=== PATIENT | male | born 1945 | race Caucasian/White ===

== ENCOUNTER → 2023-08-01 15:05 | Outpatient (CLI) | payer MEDICARE, SELFPAY | PROVIDERS: PCP Family Medicine; Visit Provider Internal Medicine Pulmonary Disease | DX: R06.02 Shortness of breath (principal) | CPT/HCPCS: 94762 ==

== ENCOUNTER → 2023-08-03 11:59 | Outpatient (CLI) | payer MEDICARE, SELFPAY | PROVIDERS: PCP Family Medicine; Visit Provider Physician Assistant | DX: R06.09 Other forms of dyspnea (principal); R00.2 Palpitations; J44.9 Chronic obstructive pulmonary disease, unspecified; Z87.891 Personal history of nicotine dependence | CPT/HCPCS: 93225 ==

== ENCOUNTER → 2023-08-08 10:53 | Outpatient (CLI) | payer MEDICARE, SELFPAY ==
--- NOTE | 2023-08-08 10:54 | CA_ITS ---
APPROVED REPORT EXAM: Comprehensive 2D, Doppler, and color-flow Echocardiogram Lodge Attendant: CATRACHO Gordon, RVS Ht: 5 ft 0 in Wt: 151lbs BSA: 1.66 BP: 121/67 mmHg Indications: HARRIS, COPD, Diastolic dysfunction, Palpitations, Smoker Echo Enhancing Agent Comments: Limited windows due to lung impedence 2D Dimensions LVDd 3.29 cm M: 4.2 - 5.9 LVEF (Visual) 36.10 % LVDs 2.74 cm M: 2.5 - 4.0 LA Volume 42.70 mL Aortic Root 2.98 cm M: 3.1 - 3.7 LA Volume Index [id number] mL/m2 (M/F) 16-34 Left Atrium 3.12 cm M: 3.0 - 4.0 LVOT 2.11 cm (M/F) 1.5-2.5 M-Mode Dimensions RVDd 3.35 cm (0.9-2.6) LA Diam 3.47 cm (1.9-4.0) LVDd 4.45 cm (3.5-5.7) Ao Diam 3.24 cm (2.0-3.7) LVDs 3.48 cm (3.5-5.7) IVSd 0.99 cm (0.6-1.1) PWd 0.95 cm (0.6-1.1) EF (Teich) 50.70% EPSs 0.34 cm FS 25.80% EDV (Teich) 101.90 mL TAPSE 2.91 (<1.7) ESV (Teich) 50.20 mL LV Diastology E Decel Time 263.00 (160-240 msec) E/A Ratio 0.86 MED E' 6.70 (< 7 cm/sec) MED A' 9.20 cm/s E'/MED E' Ratio 9.06 (>14) LAT E' 8.40 (<10 cm/sec) LAT A' 11.90 cm/s E/LAT E' Ratio 7.23 (>14) Aortic Valve LVOT Max 86.00 (70-110 cm/s) LVOT VTI 20.22 cm AoV Peak Osman. 159.00 (50-130 cm/s) AO Peak GR. 10.10 mmHg AO Mean GR. 5.00 (<5 mmHg) AO VTI 34.55 (18-25 cm) ISAIAH (VTI) 2.05 (2.5-4.5 cm2) Mitral Valve MV A Velocity 71.00 (40-130 cm/s) E/A Ratio 0.86 MV Decel. Time 263.00 (160-240 ms) Pulmonary Valve PV Peak Velocity 83.00 (50-150 cm/s) Tricuspid Valve TR P. Velocity 321.00 cm/s RAP Estimate 10.00 mmHg RVSP 51.20 mmHg Left Ventricle The left ventricle is normal size. The left ventricular systolic function is normal. The left ventricular ejection fraction is within the normal range. There is increased LV wall thickness. There is normal LV segmental wall motion. Diastolic function is indeterminate. LVEF is 60%. Right Ventricle Right ventricle is moderately to severely dilated. The right ventricular systolic function is normal. Atria The left atrium size is normal. The right atrium size is normal. There is no Doppler evidence of interatrial shunt. Aortic Valve The aortic valve is mildly thickened. There is no aortic valvular stenosis. No aortic regurgitation is present. Mitral Valve The mitral valve is normal in structure. No evidence of mitral valve stenosis. Trace mitral regurgitation. Tricuspid Valve The tricuspid valve leaflets are thin and pliable. Mild tricuspid regurgitation. RVSP is 40 mmHg + RA pressure. Pulmonic Valve The pulmonary valve is normal in structure. Trace pulmonic regurgitation. Great Vessels The aortic root is normal in size. The ascending aorta is not well visualized. The IVC is not well visualized. Pericardium There is no pericardial effusion. Other Information Study Quality: Technically Difficult Conclusion This was a technically difficult study due to poor accoustic windows. Normal biventricular systolic function. Moderate to severe RV dilation. Mild TR. Elevated RVSP 40 mmHg + RA pressure. Electronically signed by : Za Hook, 08/10/2023 22:41:13
--- NOTE | 2023-08-08 10:54 | NM_ITS ---
APPROVED REPORT Exam: Nuclear Stress Test Indication: hyperlipidemia, fm hx., copd, sob, palpitations, fatigue Patient Location: Outpatient Stress Tech: Leticia Hammonds [place] Tech:Gita Treadwell TIN RT (R)(N)(M) Ht: 5 ft 6 in Wt: 152 lbs HR: 77 bpm BP: 144/77 mmHg BSA: 1.78 m2 Rhythm: NSR TID: 0.93 BMI: 24.5 History: hyperlipidemia, fm hx., copd, sob, palpitations, fatigue Procedure: Patient received 0.4 mg of intravenous Lexiscan, resting heart rate 77 bpm, resting blood pressure 144/77 mmHg, with Lexiscan maximum heart rate achieved was 93 bpm which is % of the maximum predicted heart rate and blood pressure was 124/469 mmHg. With Lexiscan, patient denied any complaint of chest pain. Cardiac Stress and Resting SPECT Images: Cardiac Stress and Resting SPECT images were obtained using technetium 99m Myoview 31.8 mCi stress and 10.55 mCi at rest. Resting and stress imaging in both supine and prone positions demonstrate large sized, moderate, partially reversible perfusion defect in the inferior, septal, and inferoseptal LV schultz, from the base and extending distally towards the inferoapical region. Gated imaging demonstrates normal global LV systolic function. There is mild hypokinesis of the septal and inferoseptal LV schultz. LVEF is calculated at 69%. Conclusion: Large sized, moderate, partially reversible perfusion defect in the inferior, septal, and inferoseptal LV schultz, from the base and extending distally towards the inferoapical region. Findings are suggestive of partial reversible ischemia. Gated imaging demonstrates normal global LV systolic function. There is mild hypokinesis of the septal and inferoseptal LV schultz. LVEF is calculated at 69%. Electronically signed by : Za Hook MD 08/19/2023 17:29:21
--- NOTE | 2023-08-08 12:48 | CA_ITS ---
APPROVED REPORT Exam: Pharmacologic Technologist: Leticia Hammonds Ht: 5 ft 6 in Wt: 151 lbs BSA: 1.77 m2 HR: 77 bpm BP: 146/77 mmHg Rhythm: NSR Indications: Dyspnea,Palpitations Medical History Medications: Simvastatin,,,,, TAMSULOSIN,,,,, Albuterol,,,,, Acetaminophen,,,,, AZelastine,,,,, Ipratropium [place],,,,, Multivitamin,,,,, Tylenol PM,,,,, BREztri aerosphere,,,,, Stress Test Details Test: LEXISCAN HR Resting HR: 75 bpm Max Heart Rate (APMHR): 140 bpm Max HR Achieved: 93 bpm Target HR (85% APMHR): 119 bpm % of APMHR: 66 Recovery HR: 82 bpm BP Resting BP: 146.0/77.0 mmHg Max BP: 146.0/77.0 mmHg Recovery BP: 140.0/72.0 mmHg ECG Resting ECG: Normal sinus rhythm, non-specific T-wave changes Stress ECG: No ST changes Arrhythmia: PVCs Clinical Exercise duration: 04:42 min Highest Stage Achieved: Exercise capacity: 1.0 METs Stress ECG Conclusion Symptoms: Dyspnea Arrhythmias/Ectopy: PVCs ST-T Changes: No significant ST changes Conclusion: Unremarkable Lexiscan stress test. Myoview images are reported separately. Test Summary REST . . . . . . . Resting REST 04:01 . . 75 . 146/ 77 . . Stage 1 . . . . . . . Myoview Injected Stage 1 01:00 . . 87 . . . . Stage 2 01:00 . . 90 . 124/ 69 . . Stage 3 01:00 . . 86 . 132/ 69 . . Stage 4 01:00 . . 86 . 140/ 69 . . Stage 4 01:42 . . 83 . 140/ 69 . Stop exercise at 04:42 RECOVERY 01:00 . . 82 . 137/ 68 . . RECOVERY 02:00 . . 84 . 137/ 68 . . RECOVERY 03:00 . . 82 . 140/ 72 . . RECOVERY 03:07 . . 83 . 140/ 72 . . Electronically signed by : Za Hook MD 08/19/2023 17:25:27
== END ==
PROVIDERS: PCP Family Medicine; Visit Provider Physician Assistant
DX: J44.9 Chronic obstructive pulmonary disease, unspecified (principal); R00.2 Palpitations; R06.09 Other forms of dyspnea; Z87.891 Personal history of nicotine dependence
CPT/HCPCS: 78452; 93017; 93306; A9502; J2785

== ENCOUNTER → 2023-10-27 09:45 | Outpatient (CLI) | payer MEDICARE, SELFPAY ==
--- NOTE | 2023-10-27 09:51 | XR_ITS ---
FINAL REPORT TECHNIQUE: Chest PA & Lateral CLINICAL HISTORY: SOB/Insurance need CXR before CT chest COMPARISON: None FINDINGS: 2 views of the chest were performed. The heart size is normal. The mediastinum is within normal limits. The lungs are hyperinflated. There is mild scarring at the bases. There are no pleural effusions. There is no pneumothorax. The bony thorax appears intact. IMPRESSION: Hyperinflated lungs with mild scarring at the bases. Reviewed, Interpreted and Dictated by Frank Heard MD Transcribed by Desirae Palmer Authenticated and [facility]
== END ==
PROVIDERS: PCP Family Medicine; Visit Provider Internal Medicine Pulmonary Disease
DX: R06.02 Shortness of breath (principal)
CPT/HCPCS: 71046

== ENCOUNTER 2024-01-26 10:17 | Outpatient (CLI) | payer MEDICARE, SELFPAY ==
--- NOTE | 2024-01-26 10:18 | CT_ITS ---
FINAL REPORT TECHNIQUE: Thin section axial images were obtained from the lung apices through the upper abdomen without contrast. This study was performed with techniques to keep radiation doses as low as reasonably achievable (ALARA). Individualized dose reduction techniques using automated exposure control or adjustment of mA and/or kV according to the patient's size were employed. CLINICAL HISTORY: SOB COMPARISON: None FINDINGS: There is no mediastinal, hilar, or axillary lymphadenopathy. No pleural or pericardial effusion. Changes of emphysema are present. There is right middle lobe and lingular atelectasis. There is a 5 mm left upper lobe nodule seen best on image #142. No other focal masses or nodules are identified. Limited, unenhanced evaluation of the upper abdomen is without acute abnormality. There is no acute osseous abnormality. IMPRESSION: 5 mm left upper lobe nodule. Without prior examinations, would recommend a 6-month follow-up chest CT without contrast for further evaluation. Changes of emphysema. Reviewed, Interpreted and Dictated by Gudelia Madrid MD Transcribed by Dori Yang Authenticated and . [facility]
== END 2024-01-26 23:59 ==
LOC: RAD 10:18
PROVIDERS: PCP Family Medicine; Visit Provider Internal Medicine Pulmonary Disease
DX: J44.9 Chronic obstructive pulmonary disease, unspecified (principal); R06.09 Other forms of dyspnea; R07.9 Chest pain, unspecified; R91.8 Other nonspecific abnormal finding of lung field
CPT/HCPCS: 71250

== ENCOUNTER 2024-04-16 14:52 | Outpatient (CLI) | payer MEDICARE, SELFPAY ==
[2024-04-16 15:11] LABS: Basophils # 0.1 K/mm3 (0-0.2); Eosinophils # 0.2 K/mm3 (0.0-0.4); Hematocrit 42.4 % (42.0-52.0); Hemoglobin 13.8 g/dL (14.1-18.0); Lymphocytes # 1.8 K/mm3 (0.7-4.5); Lymphocytes % 23.8 % (10-50); Mean Corpuscular HGB Conc 32.6 g/dL (31.8-35.4); Mean Corpuscular Hemoglobin 29.9 pg (27.0-31.2); Mean Corpuscular Volume 91.8 fl (80-94); Mean Platelet Volume 8.8 fl (7.4-10.4); Monocytes # 0.5 K/mm3 (0.1-1.0); Monocytes % 6.9 % (1.7-9.3); Neutrophils % 66.2 % (37.0-80.0); Platelet Count 148 K/mm3 (142-424); Red Blood Count 4.62 M/mm3 (4.60-6.20); Red Cell Distribution Width 13.1 % (11.5-17.5); White Blood Count 7.5 K/mm3 (4.8-10.8)
[2024-04-16 15:46] LABS: Alanine Aminotransferase 22 U/L (12-78); Albumin Level 4.2 g/dl (3.5-5.0); Alkaline Phosphatase 58 U/L (38-126); Anion Gap 13.6 mEq/L (5-15); Aspartate Amino Transferase 34 U/L (17-59); Bilirubin,Direct 0.1 mg/dl (0.0-0.4); Bilirubin,Indirect 0.6 mg/dL (0.0-0.9); Bilirubin,Total 0.7 mg/dl (0.2-1.3); Bilirubin,Unconjugated 0.6 mg/dL (0.0-1.1); Blood Urea Nitrogen 22 mg/dl (9-20); Calcium 9.6 mg/dl (8.4-10.2); Carbon Dioxide 32 mmol/L (22.0-30.0); Chloride 100 mmol/L (98-107); Chol/HDL Ratio 1.8 (1-3.5); Cholesterol 158 mg/dl (140-200); Estimated Glomerular Filt Rate 53 ml/min (>60); GFR (African American) 64 ML/MIN (>60); Glucose 101 mg/dl (74-100); HDL Cholesterol 87 mg/dl (40-60); Potassium 4.6 mmoL/L (3.5-5.1); Sodium 141 mmol/L (136-145); Total Protein,Serum 6.7 g/dl (6.3-8.2); Triglycerides 134 mg/dl (30-150); VLDL Cholesterol 27 mg/dL (0-40)
[2024-04-16 15:56] LABS: Direct LDL Cholesterol 62.29 mg/dL (100-129)
[2024-04-16 16:03] LABS: Free T4 (Free Thyroxine) 1.13 ng/dl (0.78-2.19)
== END 2024-04-16 23:59 | disposition home or self-care (01) ==
PROVIDERS: PCP Family Medicine; Visit Provider Internal Medicine
DX: I27.21 Secondary pulmonary arterial hypertension (principal); J44.9 Chronic obstructive pulmonary disease, unspecified; Z87.891 Personal history of nicotine dependence; R06.09 Other forms of dyspnea; R07.9 Chest pain, unspecified
CPT/HCPCS: 36415; 80048; 80061; 80076; 83735; 84439; 84443; 85025

== ENCOUNTER 2024-04-26 13:11 | Outpatient (CLI) | payer MEDICARE, SELFPAY ==
--- NOTE | 2024-04-26 13:13 | CA_ITS ---
APPROVED REPORT EXAM: Comprehensive 2D, Doppler, and color-flow Echocardiogram Nursing Scheduler: Evelina Newton CRT Ht: 5 ft 6 in Wt: 155lbs BSA: 1.79 BP: 103/54 mmHg Indications: Chest Pain, COPD, Shortness of Breath, home o2 2D Dimensions LA Volume 32.80 mL LA Volume Index 17.80 mL/m2 (M/F) 16-34 M-Mode Dimensions RVDd 3.50 cm (0.9-2.6) LA Diam 3.04 cm (1.9-4.0) LVDd 4.64 cm (3.5-5.7) LVDs 2.47 cm (3.5-5.7) IVSd 0.65 cm (0.6-1.1) PWd 0.87 cm (0.6-1.1) EF (Teich) 78.10% FS 46.80% EDV (Teich) 99.30 mL TAPSE 2.60 (<1.7) ESV (Teich) 21.70 mL LV Diastology E Decel Time 343 (160-240 msec) E/A Ratio 0.60 MED A' 9.50 cm/s LAT A' 8.40 cm/s Aortic Valve AO Peak GR. 5.90 mmHg Mitral Valve MV A Velocity 79.0 (40-130 cm/s) E/A Ratio 0.60 Pulmonary Valve PV Peak Velocity 122.0 (50-150 cm/s) Tricuspid Valve TR P. Velocity 222.00 cm/s RAP Estimate 10.00 mmHg RVSP 29.70 mmHg Left Ventricle The left ventricle is normal size. The left ventricular systolic function is normal. The left ventricular ejection fraction is within the normal range. There is normal left ventricular wall thickness. There is normal LV segmental wall motion. The left ventricular diastolic function is normal. LVEF is 55%. Right Ventricle Right ventricle is moderately dilated. Right ventricle is mildly hypokinetic. Atria The left atrium size is normal. Right atrium is mildly dilated. There is no Doppler evidence of interatrial shunt. Aortic Valve The aortic valve is mildly thickened. There is no aortic valvular stenosis. No aortic regurgitation is present. Mitral Valve The mitral valve leaflets are mildly thickened. No evidence of mitral valve stenosis. Trace mitral regurgitation. Tricuspid Valve The tricuspid valve leaflets are thin and pliable. Trace tricuspid regurgitation. There is insufficient TR jet to estimate RVSP. Pulmonic Valve The pulmonary valve is normal in structure. Trace pulmonic regurgitation. Great Vessels The aortic root is normal in size. The ascending aorta is not well-visualized. The IVC is dilated, but collapses > 50% with respirophasic variation. RA pressure is estimated at 8 mmHg. Pericardium There is no pericardial effusion. Other Information Study Quality: Fair Conclusion Normal LV systolic function. Moderately dilated RV with mild reduction in RV function. Mild RA dilation. No significant valvular stenosis or regurgitation. Electronically signed by : Za Hook MD 05/04/2024 00:26:55
== END 2024-04-26 23:59 | disposition home or self-care (01) ==
LOC: RT 13:13
PROVIDERS: PCP Family Medicine; Visit Provider Internal Medicine
DX: I27.21 Secondary pulmonary arterial hypertension (principal); R07.9 Chest pain, unspecified; J44.9 Chronic obstructive pulmonary disease, unspecified; Z87.891 Personal history of nicotine dependence; R06.09 Other forms of dyspnea; R00.2 Palpitations
CPT/HCPCS: 93306